=== PATIENT | male | born 1980 | race Caucasian/White ===

== ENCOUNTER 2019-05-17 16:17 | Emergency (ER) | payer SELFPAY ==
[~2019-05-17] VITALS: Ht 182.9 cm; Wt 61.4 kg
[2019-05-17 16:23] VITALS: Ht 182.9 cm; Wt 61.4 kg
[2019-05-17 17:07] LABS: BASOPHILS 0.1 % (0-2); EOSINOPHILS 0 % (0-7); HEMATOCRIT 40.3 % (42.0-54.0); HEMOGLOBIN 14.4 g/dL (13.5-17.5); IMMATURE GRANULOCYTES 0.2 % (0-5); MCH 31.1 pg (26.0-34.0); MCHC 35.7 g/dL (31.0-37.0); MEAN PLATELET VOLUME 10.5 fL (7.4-10.4); MONOCYTES 11.1 % (2-11); NEUTROPHILS 77.6 % (40-80); PLATELET COUNT 186 10x3/uL (130-400); RBC 4.63 10x6/uL (4.20-6.10); WBC 11.5 10x3/uL (4.8-10.8)
[2019-05-17 17:26] LABS: ANION GAP 9.5 mmol/L (8-16); BILIRUBIN - TOTAL 0.45 mg/dL (0.2-1.3); CALCIUM 9.2 mg/dL (8.5-10.1); CARBON DIOXIDE 31.3 mmol/L (21.0-32.0); CREATININE - SERUM 1.3 mg/dL (0.6-1.3); MAGNESIUM - SERUM 1.8 mg/dL (1.8-2.4); POTASSIUM - SERUM 3.8 mmol/L (3.5-5.1); PROTEIN - SERUM 7.1 g/dL (6.4-8.2)
--- NOTE | 2019-05-17 17:33 | NUR ---
DR OWENS NOTIFIED AND SITTER ORDERED. SITTER AT BEDSIDE. NOTIFIED CHARGE NURSE AND ATTENDING IN REGARDS TO ASSESSMENT FINDINGS. RESOURCES GIVEN TO PT AND SAFETY PLAN INITIATED. PT ASSESSED HIGH RISK OF SUICIDE.
[2019-05-17 17:38] LABS: CKMB 10.8 U/L (0.0-3.6); CREATINE KINASE 636 UL (21-232)
[2019-05-17 17:41] LABS: TROPONIN-I < 0.017 ng/mL (0.000-0.060)
[2019-05-17 18:02] LABS: APPEARANCE CLEAR (CLEAR); BILIRUBIN NEGATIVE (NEGATIVE); COLOR YELLOW (YELLOW); GLUCOSE NEGATIVE (NEGATIVE); KETONE NEGATIVE (NEGATIVE); NITRITE NEGATIVE (NEGATIVE); PROTEIN TRACE mg/dL (NEGATIVE); UROBILINOGEN NORMAL (NORMAL)
[2019-05-17 18:03] LABS: UDS - AMPHET NEGATIVE QUAL (NEGATIVE); UDS - BARB NEGATIVE QUAL (NEGATIVE); UDS - BENZO NEGATIVE QUAL (NEGATIVE); UDS - COCAINE POSITIVE QUAL (NEGATIVE); UDS - OPIATE NEGATIVE QUAL (NEGATIVE); UDS - PCP NEGATIVE QUAL (NEGATIVE); UDS - THC POSITIVE QUAL (NEGATIVE)
[2019-05-18 05:15] VITALS: BP 118/79
== END 2019-05-18 09:04 ==
LOC: D.ER 16:17
PROVIDERS: Family Medicine
DX: R45.851 Suicidal ideations (principal)

== ENCOUNTER 2019-08-24 23:17 | Emergency (ER) | payer SELFPAY ==
[~2019-08-24] VITALS: Ht 182.9 cm; Wt 61.7 kg
[2019-08-24 23:22] VITALS: Ht 182.9 cm; Wt 61.7 kg
[2019-08-24 23:45] LABS: BASOPHILS 0.2 % (0-2); EOSINOPHILS 0.3 % (0-7); HEMATOCRIT 41.2 % (42.0-54.0); HEMOGLOBIN 13.9 g/dL (13.5-17.5); IMMATURE GRANULOCYTES 0.2 % (0-5); LYMPHOCYTES 22.5 % (15-50); MCHC 33.7 g/dL (31.0-37.0); MCV 91.8 fL (80.0-100.0); MEAN PLATELET VOLUME 10.3 fL (7.4-10.4); MONOCYTES 10.1 % (2-11); NEUTROPHILS 66.7 % (40-80); PLATELET COUNT 219 10x3/uL (130-400); RBC 4.49 10x6/uL (4.20-6.10); RDW 12.3 % (11.5-14.5); WBC 10.2 10x3/uL (4.8-10.8)
[2019-08-24 23:50] LABS: APPEARANCE CLEAR (CLEAR); BILIRUBIN NEGATIVE (NEGATIVE); COLOR YELLOW (YELLOW); GLUCOSE NEGATIVE (NEGATIVE); KETONE NEGATIVE (NEGATIVE); NITRITE NEGATIVE (NEGATIVE); PROTEIN NEGATIVE (NEGATIVE); SPECIFIC GRAVITY 1.015 (1.005-1.020); UROBILINOGEN NORMAL (NORMAL)
[2019-08-24 23:59] LABS: UDS - AMPHET NEGATIVE QUAL (NEGATIVE); UDS - BARB NEGATIVE QUAL (NEGATIVE); UDS - BENZO NEGATIVE QUAL (NEGATIVE); UDS - COCAINE POSITIVE QUAL (NEGATIVE); UDS - OPIATE NEGATIVE QUAL (NEGATIVE); UDS - PCP NEGATIVE QUAL (NEGATIVE); UDS - THC POSITIVE QUAL (NEGATIVE)
[2019-08-25 00:09] LABS: ANION GAP 15.4 mmol/L (8-16); CALCIUM 8.9 mg/dL (8.5-10.1); CARBON DIOXIDE 28.7 mmol/L (21.0-32.0); CREATININE - SERUM 1.2 mg/dL (0.6-1.3); POTASSIUM - SERUM 3.1 mmol/L (3.5-5.1)
[2019-08-25 00:15] LABS: ALBUMIN 3.6 g/dL (3.4-5.0); BILIRUBIN - TOTAL 0.53 mg/dL (0.2-1.3); MAGNESIUM - SERUM 1.8 mg/dL (1.8-2.4); PROTEIN - SERUM 6.9 g/dL (6.4-8.2)
--- NOTE | 2019-08-25 00:20 | NUR ---
DR OWENS NOTIFIED AND SITTER ORDERED. SITTER AT BEDSIDE. NOTIFIED CHARGE NURSE AND ATTENDING IN REGARDS TO ASSESSMENT FINDINGS. RESOURCES GIVEN TO PT AND SAFETY PLAN INITIATED.
[2019-08-25 06:29] VITALS: BP 123/85
== END 2019-08-25 06:54 ==
LOC: D.ER 23:17
PROVIDERS: Family Medicine
DX: R45.851 Suicidal ideations (principal); F14.10 Cocaine abuse, uncomplicated